=== PATIENT | male | born 1980 | race Caucasian/White ===

== ENCOUNTER 2016-10-23 08:56 | Emergency (ER) | payer OTHER ==
[2016-10-23 09:01] VITALS: BP 154/99; PULSE 88; TEMP 99; BMI 44.3
--- NOTE | 2016-10-23 09:01 | PDOC ---
History of Present Illness - General Chief Complaint: Edema Stated Complaint: left hand pain,hx of gout Time Seen by Provider: 10/23/16 08:58 History Source: Patient Exam Limitations: No Limitations - History of Present Illness Initial Comments: 10/23/16 09:01 This is a 35-year-old RHD male with history of gout who comes in complaining of left wrist pain. 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 No sore throat,. No ear pain CardioVascular: No chest pain or shortness of breath Respiratory:No cough, or wheezing. Gastrointestinal: no nausea, vomitting, diarrhea or constipation, No rectal bleeding Genitourinary: No dysuria, hematuria, or frequency Musculoskeletal: Yes: left wrist pain Neurologic: No headache, vertigo, dizziness or loss of consciousness Psychiatric: nor depression Skin: No rashes or easy bruising Endocrine: no increased thirst or abnormal weight change Allergic: no skin or latex allergy All other systems reviewed and normal GENERAL: The patient is awake, alert, and fully oriented, in no acute distress. HEAD: Normal with no signs of trauma. EYES: Pupils equal, round and reactive to light, extraocular movements intact, sclera anicteric, conjunctiva clear. EXTREMITIES: Limited range of motion of the left wrist, swelling, No erythema, pulse 2+ RP and UP NEUROLOGICAL: Normal speech, normal gait. PSYCH: Normal mood, normal affect. SKIN: Warm, Dry, normal turgor, no rashes or lesions noted. 10/23/16 09:13 Past History - Past Medical History Allergies/Adverse Reactions: Allergies Allergy/AdvReac Type Severity Reaction Status Date / Time No Known Allergies Allergy Verified 10/23/16 08:58 Home Medications: Ambulatory Orders Indomethacin 25 mg PO TID PRN #30 capsule 10/23/16 Oxycodone HCl/Acetaminophen [Percocet 5-325 mg Tablet -] 1 tab PO BID #8 tablet MDD 2 10/23/16 Suicide Attempt (Hx): No - Surgical History GI Surgery: Yes (hernia repair 2004) - Immunization History Td Vaccination: No Immunization Up to Date: Yes - Psycho/Social/Smoking Cessation Hx Anxiety: No Suicidal Ideation: No Smoking Status: No Smoking History: Never smoked Have you smoked in the past 12 months: No Number of Cigarettes Smoked Daily: 0 Hx Alcohol Use: No Drug/Substance Use Hx: No Substance Use Type: None Medical Decision Making - Medical Decision Making 10/23/16 09:17 Assessment and plan: This is a 34-year-old male who comes in requesting pain medications for his gout flair Patient given Toradol for the pain and prescription for indomethecin and percocet 10/23/16 09:[address] Espinoza. He states patient was seen on August 14. Creatinine at that time was 0.8 Pt asked to follow up with Rheumatology Pt asked to return to the ER for worsening symptoms, increasing pain, any signs of infection *DC/Admit/Observation/Transfer Diagnosis at time of Disposition: Gout Qualifiers: Gout site: wrist Gout etiology: idiopathic Chronicity: chronic Laterality: left Presence of tophus: without tophus Qualified Code(s): M1A.0320 - Idiopathic chronic gout, left wrist, without tophus (tophi) - Discharge Dispostion Disposition: HOME Condition at time of disposition: Stable Admit: No - Prescriptions Prescriptions: Indomethacin 25 mg PO TID PRN #30 capsule PRN Reason: gout pain Oxycodone HCl/Acetaminophen [Percocet 5-325 mg Tablet -] 1 tab PO BID #8 tablet MDD 2 - Referrals Referrals: Robin Espinoza MD [Staff Physician] - - Patient Instructions Printed Discharge Instructions: DI for Gout, Gout (Alternative Therapy) Additional Instructions: Thank you for coming in to the ER Please take medications as prescribed Please follow up with the Furnace Charger as we discussed Please return to the ER for increased pain, swelling, fevers chills - Post Discharge Activity Work/School Note: Back to Work
[2016-10-23] MEDS ORDERED: KETOROLAC TROMETHAMINE 30 MG/1 ML VIAL IM ONE (09:13)
== END 2016-10-23 09:32 | disposition home or self-care (01) ==
LOC: FER 08:56
PROC: 3E0233Z Introduction of Anti-inflammatory into Muscle, Percutaneous Approach (ICD-10-PCS; principal; 2016-10-23)
DX: M1A.0320 Idiopathic chronic gout, left wrist, without tophus (tophi) (principal); E66.01 Morbid (severe) obesity due to excess calories; Z68.41 Body mass index [BMI] 40.0-44.9, adult
CPT/HCPCS: 96372; 99281-25

== ENCOUNTER 2016-10-26 03:12 | Emergency (ER) | payer OTHER ==
--- NOTE | 2016-10-26 03:17 | PDOC ---
History of Present Illness - General Chief Complaint: Pain Stated Complaint: L HAND PAIN Time Seen by Provider: 10/26/16 03:17 - History of Present Illness Initial Comments: 10/26/16 03:32 This 35-year-old man with long history of gout, seen here 2 days ago with flareup involving his left wrist/hand presents with persistent pain and swelling in the area. Patient had been taking indomethacin 25 mg 3 times a day as prescribed. No new injury to the area. Patient has not had fever/chills. He states that he has not had any previous history of gastritis/peptic ulcer disease or kidney disease. The patient has no previous history of being seen by a mobile paint specialist. When he was seen here 2 days ago, he was given Dr. Espinoza' s referral information for follow-up. The patient has not yet contacted Dr. Espinoza; he is unsure if he is under his insurance plan. Patient states that he has not consumed any alcohol in over 2 months. He is also adhering to dietary modification of avoiding red meat/shellfish. Past History - Past Medical History Allergies/Adverse Reactions: Allergies Allergy/AdvReac Type Severity Reaction Status Date / Time No Known Allergies Allergy Verified 10/23/16 08:58 Home Medications: Ambulatory Orders Indomethacin 50 mg PO TID PRN 10/26/16 Indomethacin [Indocin -] 50 mg PO TID #21 capsule 10/26/16 GI Disorders: Yes (constipation) Suicide Attempt (Hx): No - Surgical History GI Surgery: Yes (hernia repair 2004) - Immunization History Td Vaccination: No Immunization Up to Date: Yes - Psycho/Social/Smoking Cessation Hx Anxiety: No Suicidal Ideation: No Smoking Status: No Smoking History: Never smoked Have you smoked in the past 12 months: No Number of Cigarettes Smoked Daily: 0 Hx Alcohol Use: No Drug/Substance Use Hx: No Substance Use Type: None Review of Systems - Review of Systems Able to Perform ROS?: Yes Comments:: 12 point review of systems is negative except for what is noted in the history of present illness *Physical Exam - Physical Exam Comments: GENERAL:Adult male, alert and oriented 3, in no acute distress HEAD: Normal with no signs of trauma. EYES: PERRLA, EOMI, sclera anicteric, conjunctiva clear. EXTREMITIES: Left wrist/proximal hand Moderate edema/faint erythema/moderate generalized tenderness. No wound or ulcer noted No lymphangitic streaking or fluctuance Remainder of the extremity exam is normal NEUROLOGICAL: Cranial nerves II through XII grossly intact. Normal speech. No focal neurological deficits. Medical Decision Making - Medical Decision Making This 35-year-old man with a history of gout in the past presents with persistent pain/swelling/erythema of the proximal left hand and left wrist. He had been seen here 2 days ago but has persistent symptoms despite taking indomethacin 25 mg 3 times a day. Exam shows inflammation of the symptomatic areas consistent with acute gout flareup. Doubt cellulitis without presence of wound/skin breakage/fever/lymphangitic streaking. Persistent symptoms likely related to underdosing of indomethacin. Toradol 60 mg IM will be given now. Patient instructed to double dose of indomethacin to 50 mg 3 times a day, always taking his medication with food. As soon as the inflammation responds and pain is milder, he should referred back to 25 mg 3 times a day. Meanwhile, the patient should follow-up with a mobile paint specialist to pursue uric acid lowering medication. *DC/Admit/Observation/Transfer Diagnosis at time of Disposition: Acute gout Qualifiers: Gout site: wrist Gout etiology: unspecified cause Laterality: left Qualified Code(s): M10.9 - Gout, unspecified - Discharge Dispostion Disposition: HOME Condition at time of disposition: Stable - Prescriptions Prescriptions: Indomethacin [Indocin -] 50 mg PO TID #21 capsule - Referrals Referrals: Robin Espinoza MD [Staff Physician] - - Patient Instructions Printed Discharge Instructions: Gout Additional Instructions: Increase indomethacin to 50 mg 3 times a day, always take with food When pain/swelling decreases, decrease indomethacin to 25 mg 3 times a day Follow-up with Dr. Espinoza or other mobile paint specialist who is covered by your insurance (call tomorrow) Continue diet modification/drink plenty of water/avoid alcohol as you are doing Return to ER if you are having worsening pain/swelling or develop fever
[2016-10-26] MEDS ORDERED: KETOROLAC TROMETHAMINE 60 MG/2 ML VIAL IM ONE (03:19)
[2016-10-26 03:20] VITALS: BP 138/90; PULSE 75; TEMP 98.4; BMI 41.8
== END 2016-10-26 03:32 | disposition home or self-care (01) ==
LOC: FER 03:12
PROC: 3E0233Z Introduction of Anti-inflammatory into Muscle, Percutaneous Approach (ICD-10-PCS; principal; 2016-10-26)
DX: M10.9 Gout, unspecified (principal); K59.00 Constipation, unspecified
CPT/HCPCS: 99282-25

== ENCOUNTER 2017-07-27 20:59 | Emergency (ER) | payer OTHER ==
[2017-07-27 21:38] VITALS: BP 121/75; PULSE 88; TEMP 98.9; BMI 43.2
--- NOTE | 2017-07-27 22:14 | PDOC ---
History of Present Illness - General Chief Complaint: Headache Stated Complaint: HEADACHE & BLURRY VISION X 2 MONTHS Time Seen by Provider: 07/27/17 21:35 - History of Present Illness Initial Comments: This 36-year-old man with a history of gout but no other significant past medical history presents with few months of intermittent blurry vision followed by headache. Patient describes photophobia and change in vision( nonspecific blurring; he denies double vision or field deficit) followed by pain in the vertex of his head. He describes the headache is different from the other headaches that he has had in his life. Pain is generally relieved with OTC naproxen. He presents today because he had a severe episode of pain earlier today. His vision is currently normal and he has no residual headache after taking naproxen. No history of migraine in the patient or in his family. Patient also describes facial flushing during the time of his pain although he states he feels this also during his acute gout attacks. He denies nausea and vomiting associated with the headaches Patient notes that he has been prescribed weight reduction medication that is a controlled substance by his PMD, . He is unsure of the identification of this medication, but states that his headaches began prior to starting it. Past History - Past Medical History Allergies/Adverse Reactions: Allergies Allergy/AdvReac Type Severity Reaction Status Date / Time No Known Allergies Allergy Verified 10/23/16 08:58 Home Medications: Ambulatory Orders Indomethacin 50 mg PO TID PRN 10/26/16 Indomethacin [Indocin -] 50 mg PO TID #21 capsule 10/26/16 COPD: No GI Disorders: Yes (constipation) - Surgical History GI Surgery: Yes (hernia repair 2004) - Immunization History Td Vaccination: No Immunization Up to Date: Yes - Suicide/Smoking/Psychosocial Hx Smoking Status: No Smoking History: Never smoked Have you smoked in the past 12 months: No Number of Cigarettes Smoked Daily: 0 Hx Alcohol Use: No Drug/Substance Use Hx: No Substance Use Type: None Review of Systems - Review of Systems Able to Perform ROS?: Yes Comments:: 12 point review of systems is negative except for what is noted in the history of present illness *Physical Exam - Vital Signs Last Vital Signs Temp Pulse Resp BP Pulse Ox 98.9 F 88 18 121/75 98 07/27/17 21:33 07/27/17 21:33 07/27/17 21:33 03/09/18 21:33 07/27/17 21:33 - Physical Exam Comments: GENERAL: Adult male, alert and oriented 3, in no acute distress HEAD: Normal with no signs of trauma. EYES: PERRLA, EOMI, sclera anicteric, conjunctiva erythematous bilaterally ENT: Ears normal, nares patent, oropharynx clear without exudates. Dry mucous membranes. Bilateral cheeks appear flushed NECK: Normal range of motion, supple without lymphadenopathy, JVD, or masses. LUNGS: Breath sounds equal, clear to auscultation bilaterally. No wheezes, and no crackles. HEART:Regular rate and rhythm, normal S1 and S2 without murmur, rub or gallop. ABDOMEN:.normal bowel sounds No guarding,tenderness or rebound.No masses No distention. EXTREMITIES: Normal range of motion, no edema. No clubbing or cyanosis. No erythema, or tenderness. NEUROLOGICAL: Cranial nerves II through XII grossly intact. Normal speech. No focal neurological deficits. MUSCULOSKELETAL: Back non-tender to palpation, no CVA tenderness SKIN: Warm, Dry, normal turgor, no rashes or lesions noted. Progress Note - Progress Note Progress Note: Although the patient describes a visual prodrome to his headaches which suggests migraine, because he has no personal history of migraine or familial history of migraine and the pattern started just a few months ago, noncontrast head CT was performed to evaluate for intracranial mass, bleeding or CVA. Noncontrast head CT negative for acute pathology Results discussed with the patient. Since he currently does not have headache pain, will not treat with nonsteroidal anti-inflammatory now he has been advised to continue the naproxen as needed for headaches when they occur, meanwhile, the patient had planned to see his PCP on July 30. At that time, he should make sure that his doctor is aware of his headaches and through review his medication, especially his weight reduction medication. Furthermore , he is given neurology follow-up with if he continues to have headaches in order to fully evaluate for migraine/cluster headaches *DC/Admit/Observation/Transfer Diagnosis at time of Disposition: Headache - Discharge Dispostion Disposition: HOME Condition at time of disposition: Stable - Referrals Referrals: Alexis Limon MD, MD [Primary Care Provider] - 3 days Luis Modi MD [Staff Physician] - Deng Mancuso MD [Staff Physician] - - Patient Instructions Printed Discharge Instructions: DI for Headache Additional Instructions: Continue Aleve as needed for headache Return to ER if you have severe, persistent headache Follow-up with on July 30 as planned If you have persistent intermittent headache, follow-up with neurologist (Dr. Romero) See drop board worker (Dr. Mancuso/Dr. Velasquez) for eye exam within the next 2 weeks as discussed - Post Discharge Activity
== END 2017-07-28 00:20 | disposition home or self-care (01) ==
LOC: FER 20:59
DX: R51 Headache (principal); M10.9 Gout, unspecified
CPT/HCPCS: 70450-TC; 99281-25

== ENCOUNTER 2017-09-16 12:00 | Emergency (ER) | payer OTHER ==
[2017-09-16 12:08] VITALS: BP 125/84; PULSE 85; TEMP 99; BMI 41.5
[2017-09-16] MEDS ORDERED: KETOROLAC TROMETHAMINE 60 MG/2 ML VIAL IVPUSH ONE (12:10)
--- NOTE | 2017-09-16 12:10 | PDOC ---
History of Present Illness - General Chief Complaint: Pain Stated Complaint: PAIN, SWELLING TO RIGHT KNEE Time Seen by Provider: 09/16/17 12:03 History Source: Patient Exam Limitations: No Limitations - History of Present Illness Initial Comments: 09/16/17 12:04 36 y/o male with history of gout and arthritis presents with right knee swelling and pain. Patient denies fall or trauma. No fever or chills. No SOB or chest pain. Denies long distance traveling. Takes Allopurinal, but advised to stop Indomethacin. Denies ulcer or bleeding. No SOB or calf pain. Severity: mild Associated Symptoms: reports: denies symptoms Past History - Past Medical History Allergies/Adverse Reactions: Allergies Allergy/AdvReac Type Severity Reaction Status Date / Time indomethacin [From Indocin] AdvReac Verified 09/16/17 12:09 Home Medications: Ambulatory Orders Indomethacin 50 mg PO TID PRN 10/26/16 Indomethacin [Indocin -] 50 mg PO TID #21 capsule 10/26/16 COPD: No GI Disorders: Yes (constipation) - Surgical History GI Surgery: Yes (hernia repair 2004) - Immunization History Td Vaccination: No Immunization Up to Date: Yes - Suicide/Smoking/Psychosocial Hx Smoking Status: No Smoking History: Never smoked Have you smoked in the past 12 months: No Number of Cigarettes Smoked Daily: 0 Hx Alcohol Use: No Drug/Substance Use Hx: No Substance Use Type: None Review of Systems - Review of Systems Able to Perform ROS?: Yes Is the patient limited Occitan proficient: No Constitutional: No: Chills, Fever, Weakness Respiratory: No: Cough, Shortness of Breath Cardiac (ROS): No: Chest Pain ABD/GI: No: Nausea, Vomiting : No: Dysuria Musculoskeletal: Yes: Gout, Joint Pain Integumentary: No: Bruising Neurological: No: Headache All Other Systems: Reviewed and Negative *Physical Exam - Physical Exam General Appearance: Yes: Nourished, Appropriately Dressed. No: Apparent Distress HEENT: positive: EOMI, JUSTIN, Normal ENT Inspection, Normal Voice, Symmetrical, Pharynx Normal Neck: positive: Trachea midline, Normal Thyroid, Supple. negative: Tender, Rigid, Carotid bruit Respiratory/Chest: positive: Lungs Clear, Normal Breath Sounds. negative: Chest Tender, Respiratory Distress Cardiovascular: positive: Regular Rhythm, Regular Rate, S1, S2. negative: Edema , JVD, Murmur Vascular Pulses: Femoral (R): 4+, Femoral (L): 4+, Carotid (R): 4+, Carotid (L) : 4+, Dorsalis-Pedis (R): 4+, Doralis-Pedis (L): 4+ Gastrointestinal/Abdominal: positive: Normal Bowel Sounds, Flat, Soft. negative : Tender, Organomegaly, Pulsatile Mass Lymphatic: negative: Adenopathy, Tenderness, Other Musculoskeletal: positive: Normal Inspection. negative: CVA Tenderness Extremity: positive: Normal Capillary Refill, Normal Inspection, Normal Range of Motion. negative: Calf Tenderness (no calf tenderness b/l, full ROM of right knee, no erythema, mild swelling, no septic joint, neg Valgus/varus maneuver. Neg Leachman test, Pulses 2+/4 b/l in LE, no focal deficits noted) Integumentary: positive: Normal Color, Dry, Warm, Swelling. negative: Petechiae , Rash, Ecchymosis, Bruising Neurologic: positive: carrier driver II-XII NML intact, Fully Oriented, Alert, Normal Mood/ Affect, Normal Response, Motor Strength 09/22 ED Treatment Course - ADDITIONAL ORDERS Additional order review: 09/16/17 12:09 Pt with hx of gout, will give Toradol injection. Pt refuses steroids. Continue pain medications at home If worsen return to ER 09/16/17 12:29 Pt is doing better, will discharge home with follow up with his PMD Pt is in agreement with plan *DC/Admit/Observation/Transfer Diagnosis at time of Disposition: Knee pain, right Qualifiers: Chronicity: acute Qualified Code(s): M25.561 - Pain in right knee - Discharge Dispostion Disposition: HOME Condition at time of disposition: Stable Admit: No - Referrals - Patient Instructions Printed Discharge Instructions: DI for Knee Pain Additional Instructions: Continue current pain medications Ice, rest, elevate If worsen return to ER - Post Discharge Activity
[2017-09-16] MEDS ORDERED: KETOROLAC TROMETHAMINE 60 MG/2 ML VIAL ONE (12:19)
== END 2017-09-16 13:03 | disposition home or self-care (01) ==
LOC: SUPCPDRO 12:00 → FER 12:00
PROC: 3E0333Z Introduction of Anti-inflammatory into Peripheral Vein, Percutaneous Approach (ICD-10-PCS; principal; 2017-09-16)
DX: M25.561 Pain in right knee (principal); M10.9 Gout, unspecified; Z88.8 Allergy status to other drugs, medicaments and biological substances
CPT/HCPCS: 96372; 99283-25